=== PATIENT | female | born 1975 | race Caucasian/White ===

== ENCOUNTER 2017-11-29 09:19 | Emergency (ER) | END 2017-11-29 11:29 | disposition home or self-care (01) ==

== ENCOUNTER 2018-03-06 09:23 | Emergency (ER) | END 2018-03-06 17:08 | disposition home or self-care (01) ==

== ENCOUNTER 2018-11-09 20:51 | Emergency (ER) | payer BC ==
[~2018-11-09] VITALS: Ht 152.4 cm; Wt 76.1 kg
[~2018-11-09 20:51] MED LIST: CEPH-443 PO; CIPR500T4 PO; IBUP800T48 PO; LEVO50TA71 PO; METR500T PO
[2018-11-09 20:55] VITALS: Ht 152.4 cm; Wt 76.1 kg
[2018-11-09] MEDS ORDERED: SOD CHLORIDE 0.9% 1,000 ML IV STA (21:09)
[2018-11-09] MEDS ORDERED: ONDANSETRON 4 MG INJ IV STA (21:09)
[2018-11-09] MEDS ORDERED: morphine 4 MG/ML VIAL IV STA (21:09)
[2018-11-09] MEDS ORDERED: CEFTRIAXONE 1 GM/50 ML (PMX) 50 ML IVPB ONE (22:00)
--- NOTE | 2018-11-09 22:08 | ERD ---
ER Documentation Chief Complaint Chief Complaint hx R breast cancer had sx 4 days ago, c/o generalized ab pain w nausea HPI This is a 42-year-old female with a history of right-sided breast carcinoma HER- 2 positive. The patient had undergone chemotherapy. She was recently diagnosed and underwent a lumpectomy performed at [facility] by Dr. Pepe 4 days ago. The patient indicated during the surgical procedure she had a Yuan catheter was placed. This was subsequently removed after this year surgery but she had urinary retention for several hours and then was able to voluntarily urinate without further catheterization. The patient does not complain of any frequency urgency or dysuria but does complain of mild back pain. She indicates that this morning upon awakening she had significant abdominal cramping. There is intermittent pain in the lower abdomen. She denies any fever shaking or chills. She denies any hematuria. She denies a headache. She states she had a recent PET scan that indicated there was no further metastasis. She has no shortness of breath. No swelling of her lower extremities. ROS All systems reviewed and are negative except as per history of present illness. Medications Home Meds Active Scripts Metronidazole* (Flagyl*) 500 Mg Tablet, 500 MG PO BID for 7 Days, TAB Prov:BEN GARAY MD 03/06/18 Ciprofloxacin Hcl* (Ciprofloxacin Hcl*) 500 Mg Tablet, 500 MG PO BID for 5 Days, TAB Prov:BEN GARAY MD 03/06/18 Ibuprofen* (Motrin*) 800 Mg Tab, 800 MG PO Q6H PRN for PAIN AND OR ELEVATED TEMP, #30 TAB Prov:BEN GARAY MD 03/06/18 Reported Medications Levothyroxine Sodium* (Levoxyl*) 50 Mcg Tablet, 50 MCG PO BEFORE BREAKFAST, #30 TAB 03/06/18 Allergies Allergies: Coded Allergies: No Known Allergy (Unverified , 03/06/18) PMhx/Soc History of Surgery: Yes (caesarian section) Anesthesia Reaction: No Hx Neurological Disorder: No Hx Respiratory Disorders: No Hx Cardiac Disorders: No Hx Psychiatric Problems: No Hx Miscellaneous Medical Probl: Yes (hypothyroidism, DIVERTICULITIS, BREAST CA) Hx Alcohol Use: No Hx Substance Use: No Hx Tobacco Use: No Smoking Status: Never smoker Physical Exam Vitals Vital Signs Date Temp Pulse Resp B/P (MAP) Pulse Ox O2 O2 Flow FiO2 Time Delivery Rate 11/09/18 99.0 110 16 151/90 99 20:55 (110) Physical Exam Constitutional:Well-developed. Well-nourished. HEENT:Normocephalic. Atraumatic.Pupils were equal round reactive to light. Moist mucous membranes.No tonsillar exudates. Neck: No nuchal rigidity. No lymphadenopathy. No posterior cervical spine tenderness or step-offs. Respiratory: Not using accessory muscles of respiration.Lungs were clear to auscultation bilaterally. No rhonchi. No rales. No wheezing. Cardiovascular: Regular rate regular rhythm.No murmurs. No rubs were appreciated.S1, S2 normal. Distal pulses are palpable 2+ bilaterally. GI: Abdomen was soft. Left lower quadrant tenderness. Non Distended. No pulsatile abdominal masses or bruits. No rebound. No guarding. Bowel sounds were present and normal. Muscle skeletal: Full range of motion of both the upper and lower extremities bilaterally.Normal muscle tone.No assymetrical calf tenderness or swelling. Skin: No petechia, no purpura. No lesions on the palms or the soles of the feet. No maculopapular rash. Surgical incision site over the right breast was clean dry and intact with surgical drain in place. NEURO: Patient was alert, awake, orientated x3.No facial droop. Gait observed and normal with no ataxia.Speech had regular rate and rhythm. No focal n eurological deficits. Result Diagram: 11/09/18212111/09/182121 Results 24 hrs Laboratory Tests Test 11/09/18 21:22 11/09/18 21:23 White Blood Count 17.0 10^3/ul Red Blood Count 4.50 10^6/ul Hemoglobin 12.6 g/dl Hematocrit 40.0 % Mean Corpuscular Volume 88.9 fl Mean Corpuscular Hemoglobin 28.0 pg Mean Corpuscular Hemoglobin Concent 31.5 g/dl Red Cell Distribution Width 13.2 % Platelet Count 310 10^3/UL Mean Platelet Volume 11.4 fl Immature Granulocytes % 0.500 % Neutrophils % 77.0 % Lymphocytes % 16.2 % Monocytes % 5.0 % Eosinophils % 0.9 % Basophils % 0.4 % Nucleated Red Blood Cells % 0.0 /100WBC Immature Granulocytes # 0.090 10^3/ul Neutrophils # 13.1 10^3/ul Lymphocytes # 2.7 10^3/ul Monocytes # 0.9 10^3/ul Eosinophils # 0.2 10^3/ul Basophils # 0.1 10^3/ul Nucleated Red Blood Cells # 0.0 10^3/ul Prothrombin Time 11.5 Sec Prothrombin Time Ratio 0.9 INR International Normalized Ratio 0.83 Activated Partial Thromboplast Time 30.3 Sec Sodium Level 138 mmol/L Potassium Level 3.5 mmol/L Chloride Level 104 mmol/L Carbon Dioxide Level 22 mmol/L Anion Gap 12 Blood Urea Nitrogen 11 mg/dl Creatinine 0.53 mg/dl Est Glomerular Filtrat Rate mL/min > 60 mL/min Glucose Level 109 mg/dl Calcium Level 10.0 mg/dl Total Bilirubin 0.3 mg/dl Direct Bilirubin 0.00 mg/dl Indirect Bilirubin 0.3 mg/dl Aspartate Amino Transf (AST/SGOT) 35 IU/L Alanine Aminotransferase (ALT/SGPT) 23 IU/L Alkaline Phosphatase 104 IU/L Troponin I Pending Total Protein 7.7 g/dl Albumin 4.2 g/dl Globulin 3.50 g/dl Albumin/Globulin Ratio 1.20 Amylase Level 77 U/L Lipase 97 U/L Urine Color YELLOW Urine Clarity CLEAR Urine pH 6.0 Urine Specific [place] 1.008 Urine Ketones NEGATIVE mg/dL Urine Nitrite NEGATIVE mg/dL Urine Bilirubin NEGATIVE mg/dL Urine Urobilinogen NEGATIVE mg/dL Urine Leukocyte Esterase TRACE Maggie/ul Urine Microscopic RBC 12 /HPF Urine Microscopic WBC 14 /HPF Urine Squamous Epithelial Cells FEW /HPF Urine Bacteria FEW /HPF Urine Hemoglobin 2+ mg/dL Urine Glucose NEGATIVE mg/dL Urine Total Protein NEGATIVE mg/dl Current Medications Medications Dose Sig/Charmaine Start Time Status Last (Trade) Ordered Route PRN Stop Time Admin Dose Reason Admin Sodium 1,000 ml @ Q1H STAT 11/09/18 11/09/18 Chloride 1,000 mls/hr IV 21:09 21:27 11/09/18 22:08 Morphine 4 mg ONCE STAT 11/09/18 DC 11/09/18 Sulfate IV 21:09 21:27 (morphine) 11/09/18 21:13 Ondansetron 4 mg ONCE STAT 11/09/18 DC 11/09/18 HCl (Zofran IV 21:09 21:27 Inj) 11/09/18 21:13 Procedures/MDM This patient presented to the emergency department with abdominal pain and was seen and evaluated by myself. My differential diagnosis included but was not limited to abdominal aortic aneurysm, appendicitis, pancreatitis, perforated peptic ulcer, perforated viscus, Boerhaaves syndrome or visceral pain such as diverticulitis, DKA, esophagitis, hepatitis or bowel obstruction. The patient was placed on a security monitor, continuous pulse oximetry, and IV access was established by nursing staff. The patient given intravenous morphine and Zofran for analgesia control. The patient did have pyuria with positive leukocytes which could be a result of her recent indwelling Yuan catheter. The patient was given IV ceftriaxone Departure Diagnosis: Primary Impression: Urinary tract infection Urinary tract infection type: acute cystitis Hematuria presence: without hematuria Qualified Codes: N30.00 - Acute cystitis without hematuria Condition: BEN Nassar MD Nov 09, 2018 22:08
[2018-11-09] MEDS ORDERED: SOD CHLORIDE 0.9% 100 ML ONE (22:11)
[2018-11-09] MEDS ORDERED: IOHEXOL 300MG/ML 150 ML BTL ONE (22:11)
[2018-11-09] MEDS ORDERED: DIPHENHYDRAMINE 50 MG INJ IV ONE (23:00)
[2018-11-10] MEDS ORDERED: ONDANSETRON 4 MG INJ IV STA (00:03)
[2018-11-10] MEDS ORDERED: morphine 4 MG/ML VIAL IV STA (00:03)
[2018-11-10 00:38] VITALS: BP 119/63; PULSE 91; RESP 16
== END 2018-11-10 00:40 | disposition home or self-care (01) ==
LOC: E/R 20:51
DX: N30.00 Acute cystitis without hematuria (principal); E03.9 Hypothyroidism, unspecified; Z85.3 Personal history of malignant neoplasm of breast
CPT/HCPCS: 36415; 74177; 80053; 81001; 82150; 83690; 84484; 85025; 85610; 85730; 87086; 96374; 96375; 96376; 99285; J0696; J1200; J2270; J2405; J7030; Q9967